=== PATIENT | female | born 1950 | race Caucasian/White ===

== ENCOUNTER 2017-06-25 12:59 | Outpatient (CLI) | payer MEDICARE ==
--- NOTE | 2017-06-25 14:28 | CT ---
LOW DOSE CT SCAN OF THE LUNGS: Date: 06/25/17 HISTORY: 66-year-old female with nicotine dependence, 40+ years of smoking. Wheezing for 2 years off and on. FINDINGS: There is a 9.0 mm calcified nodule at the posteromedial aspect of the right lung base, likely due to old granulomatous disease. No other parenchymal nodules or masses are seen. No pleural or pericardi al effusions are identified. There are vascular calcifications without evidence of aneurysmal dilata tion of the thoracic aorta. There are degenerative changes in the spine. IMPRESSION: Lung-RADS Category 2. Continue annual screening with LDCT in 12 months. POS: [facility]
== END 2017-06-25 13:00 | disposition home or self-care (01) ==
LOC: CT 12:59
PROVIDERS: ATTEND Family Medicine
DX: F17.210 Nicotine dependence, cigarettes, uncomplicated (principal)
CPT/HCPCS: G0297

== ENCOUNTER 2017-08-05 09:57 | Outpatient (CLI) | payer MEDICARE ==
[2017-08-05 11:51] LABS: Red Blood Cell (RBC) Count 4.34 mill/uL (4.20-5.40); White Blood Cell (WBC) Count 6.5 thou/uL (4.8-10.8)
[2017-08-05 11:57] LABS: PTT 30.7 SEC (22.9-36.1); Prothrombin Time 12.8 SEC (12.0-14.7)
[2017-08-05 12:17] LABS: Anion Gap 12 mmol/L (10-20); BUN (Urea Nitrogen) 14 mg/dL (9.8-20.1); Calc. Creatinine Clearance 0 mL/min (70-130); Calcium 9.5 mg/dL (7.8-10.44); Carbon Dioxide 31 mmol/L (23-31); Chloride 103 mmol/L (98-107); Estimated GFR-MDRD 88
--- NOTE | 2017-08-05 18:18 | EKG ---
Test Reason : Blood Pressure : / mmHG Vent. Rate : 080 BPM Atrial Rate : 080 BPM P-R Int : 138 ms QRS Dur : 074 ms QT Int : 386 ms P-R-T Axes : 079 076 075 degrees QTc Int : 445 ms Normal sinus rhythm Right atrial enlargement , p wave Lead II. Borderline ECG No previous ECGs available Confirmed by CHAPO YATES ([id number]) on 08/05/2017 6:18:20 PM Referred By: OBDULIO Confirmed By:CHAPO YATES
== END 2017-08-05 09:58 | disposition home or self-care (01) ==
LOC: LABBT 09:57
PROVIDERS: ATTEND Surgery
DX: Z01.818 Encounter for other preprocedural examination (principal); M54.12 Radiculopathy, cervical region; M47.12 Other spondylosis with myelopathy, cervical region
CPT/HCPCS: 80048; 85027; 85610; 85730; 93005; 93010

== ENCOUNTER 2017-08-05 10:00 | Inpatient (IN) | payer MEDICARE ==
[2017-08-05 10:24] VITALS: BMI 19.3
[2017-08-13] MEDS ORDERED: CEFAZOLIN/Water 2 GM/20 ML SYRINGE ONE (06:09)
[2017-08-13] MEDS ORDERED: Sodium Chloride 0.9% 10 ML ONE (06:24)
[2017-08-13] MEDS ORDERED: Thrombin 5000 UNITS/5 ML VIAL ONE (06:25)
[2017-08-13] MEDS ORDERED: Midazolam HCl 2 mg/2 ml Vial ONE (07:10)
[2017-08-13] MEDS ORDERED: Fentanyl 100 MCG/2 ML VIAL ONE ×5 (07:10→12:53)
[2017-08-13] MEDS ORDERED: Ondansetron HCl/PF 4 MG/2 ML Vial IVP PRN ×2 (09:43→11:28)
[2017-08-13] MEDS ORDERED: Promethazine HCl 25 MG/ML VIAL SLOW IVP PRN (09:43)
[2017-08-13] MEDS ORDERED: Morphine Sulfate 2 MG/ML SYRINGE SLOW IVP PRN (09:43)
[2017-08-13] MEDS ORDERED: Meperidine HCl/PF 25 MG/ML VIAL SLOW IVP PRN (09:43)
[2017-08-13] MEDS ORDERED: Promethazine HCl 25 MG/ML VIAL IM PRN ×2 (09:43→11:28)
[2017-08-13] MEDS ORDERED: HYDROmorphone 2 MG/ML VIAL SLOW IVP PRN (09:43)
[2017-08-13] MEDS ORDERED: Mag-Al 1200 mg/1200 mg/30 ML UDCUP PO PRN (11:28)
[2017-08-13] MEDS ORDERED: Bisacodyl 10 MG SUPP PR PRN (11:28)
[2017-08-13] MEDS ORDERED: traMADol HCl 50 MG TAB PO PRN (11:28)
[2017-08-13] MEDS ORDERED: Acetaminophen 325 MG TAB PO PRN (11:28)
[2017-08-13] MEDS ORDERED: Fleet Enema 133 ML BOT PR PRN (11:28)
[2017-08-13] MEDS ORDERED: HYDROcodone/Acetaminophen 7.5/325 mg Tablet PO PRN ×2 (11:28→19:02)
[2017-08-13] MEDS ORDERED: Acetaminophen/Codeine 30-300mg Tablet PO PRN (11:28)
[2017-08-13] MEDS ORDERED: Milk Of Magnesia 30 ML UDCUP PO PRN (11:28)
[2017-08-13] MEDS ORDERED: PROVENTIL INHALER 6.7 G (200 INHALATIONS) INH PRN (11:31)
[2017-08-13] MEDS ORDERED: Alendronate Sodium 70 mg Tablet PO SCH (11:45)
--- NOTE | 2017-08-13 12:38 | OP ---
DATE OF PROCEDURE: 08/13/2017 PREPROCEDURE DIAGNOSES: Multilevel cervical stenosis with myelopathy. POSTPROCEDURE DIAGNOSES: Multilevel cervical stenosis with myelopathy. SURGEON: Nate David M.D. SAFEKEEPING CLERK: Eleuterio Cortez PA-C WOUND TYPE: Type 1 wound. OR: OR #12 PROCEDURE: 1. Anterior C4-C5, C5-C6, C6-C7 discectomies for decompression of spinal cord and nerve roots. 2. Placement of interbody spacers C4-C5, C5-C6, C6-C7 packed with local bone autograft obtained from same incision and allograft, C4-C5, C5-C6, C6-C7 for arthrodesis. 3. Anterior cervical plate and screw fixation, C4, C5, C6, C7. 4. Use of operative microscope for microdissection. 5. Fusion C4, C5, C6, C7. PROCEDURE: After informed consent was obtained from the patient, the patient brought to the OR. Pro per patient pause and identification was carried out. He was placed under excellent general endotrac heal anesthesia and positioned supine on the operating room table. All appropriate points were padde d. We identified a right oblique dario that would allow for approach anteriorly at C4, C5, C6, and C7 segments. This area was sterilely cleansed, prepared, and draped. Proper patient pause and identif ication was carried out. The wound was then opened with a combination of sharp, monopolar and blunt dissection, and proceeded lateral to the larynx and pharynx and medial to the right carotid sheath. We identified the prevertebral layer of deep cervical fascia and the retractors were placed after angelique ropriate dissection of the longus colli muscles at C4, C5, C6, C7. The microscope was then moved int o the operative field and distraction at C4-C5 then occurred. We then performed diskectomy at C4-C5 with satisfactory decompression of the spinal cord and nerve roots. We then turned our attention to preparation of the endplates and for arthrodesis and an interbody spacer packed with local bone autog raft and allograft was placed at C4-C5 for structural support and arthrodesis. We then turned our at tention to the C5-C6 segment and a diskectomy was performed there with decompression of the spinal co rd and nerve roots. The endplates were prepared. An interbody spacer of appropriate dimension was p acked with local bone autograft and allograft and placed at C5-C6. We then released distraction ther e and did the same thing at C6-C7 with decompression at C6-C7 via diskectomy and preparation of the e ndplates. We placed an interbody spacer packed with local bone autograft and allograft at C6-C7. We were satisfied at that point with our decompression and arthrodesis at C6-C7, C5-C6 and C4-C5. Inte rbody spacer had been placed at that segment as well and packed with local bone autograft and allogra ft. We then removed the microscope and anterior cervical plate and screw fixation C4, C5, C6, C7 the n occurred. We were satisfied with both gross and fluoroscopic visualization and then final tighteni ng occurred. The wound was copiously irrigated and closed in anatomic layers over a drain. The gibson ent then emerged from anesthesia.
[2017-08-13] MEDS ORDERED: CEFAZOLIN/Water 2 GM/20 ML SYRINGE SLOW IVP SCH (14:00)
[2017-08-13] MEDS ORDERED: Lidocaine 1% PF 5 ML VIAL ONE (14:47)
[2017-08-13] MEDS ORDERED: Dexamethasone 20 MG/5 ML VIAL ONE (14:47)
[2017-08-13] MEDS ORDERED: Ondansetron HCl/PF 4 MG/2 ML Vial ONE (14:47)
[2017-08-13] MEDS ORDERED: Propofol 200 MG/20 ML VIAL ONE (14:47)
[2017-08-13] MEDS ORDERED: PHENYLEPHRINE-NS 100 MCG/ML 10 ML SYRINGE ONE (14:47)
[2017-08-13] MEDS ORDERED: Metoclopramide HCl 10 MG/2 ML VIAL ONE (14:47)
[2017-08-13] MEDS ORDERED: Vecuronium 10 MG VIAL ONE (14:47)
[2017-08-13] MEDS ORDERED: Glycopyrrolate 0.2 MG/ML 5 ML SYRINGE ONE (14:47)
[2017-08-13] MEDS: Sodium Chloride 0.9% 1,000 ML IV SCH (16:13)
[2017-08-13] MEDS: CEFAZOLIN/Water 2 GM/20 ML SYRINGE SLOW IVP SCH (16:13)
[2017-08-13] MEDS: tiZANidine HCl 4 MG TAB PO PRN (17:19)
[2017-08-13] MEDS: HYDROcodone/Acetaminophen 7.5/325 mg Tablet PO PRN (20:43)
[2017-08-14] MEDS: CEFAZOLIN/Water 2 GM/20 ML SYRINGE SLOW IVP SCH ×2 (00:16→08:43)
[2017-08-14] MEDS: Sodium Chloride 0.9% 1,000 ML IV SCH ×2 (01:02→06:45)
[2017-08-14] MEDS: HYDROcodone/Acetaminophen 7.5/325 mg Tablet PO PRN ×2 (04:36→08:51)
[2017-08-14] MEDS ORDERED: Cyanocobalamin (Vitamin B-12) 1,000 MCG TAB PO SCH (09:00)
[2017-08-14] MEDS ORDERED: Ergocalciferol 1.25 MG(50,000 UNITS) CAP PO SCH (09:00)
--- NOTE | 2017-08-14 09:12 | PRG ---
DATE OF SERVICE: 08/14/2017 Ms. Marie is postoperative day 1 from C4-C7 ACDF. She is doing well. She has mobilized. Her cassia in output is 50 mL. Her strength is stable from preoperatively. We went over both intra and postope rative issues. She may be dismissed today.
[2017-08-14 09:22] VITALS: BP 103/65; TEMP 98.3
[2017-08-14] MEDS: tiZANidine HCl 4 MG TAB PO PRN (10:37)
== END 2017-08-14 10:49 | disposition home or self-care (01) | DRG 473 ==
LOC: SURG A 08-13 05:42
PROVIDERS: ADMIT Surgery; ATTEND Surgery
PROC: 0RB30ZZ Excision of Cervical Vertebral Disc, Open Approach (ICD-10-PCS; principal; 2017-08-13)
PROC: 0RG20A0 Fusion of 2 or more Cervical Vertebral Joints with Interbody Fusion Device, Anterior Approach, Anterior Column, Open Approach (ICD-10-PCS; 2017-08-13)
DX: M47.12 Other spondylosis with myelopathy, cervical region (principal); F17.210 Nicotine dependence, cigarettes, uncomplicated; Z85.41 Personal history of malignant neoplasm of cervix uteri; M48.02 Spinal stenosis, cervical region; M85.80 Other specified disorders of bone density and structure, unspecified site
CPT/HCPCS: 76001; 96374; A4216; C1713; J1100; J1170; J2001; J2250; J2405; J2704; J2765; J3010; J3490

== ENCOUNTER 2017-09-18 08:00 | Outpatient (CLI) | payer MEDICARE ==
[2017-09-18] MEDS ORDERED: Iopamidol 370 76% 100 ML VIAL ONE (16:03)
== END 2017-09-18 08:01 | disposition home or self-care (01) ==
LOC: BICCT 08:00
PROVIDERS: ATTEND Internal Medicine
DX: R63.4 Abnormal weight loss (principal); R19.7 Diarrhea, unspecified
CPT/HCPCS: 36415; 74177; 82565

== ENCOUNTER 2017-10-01 12:30 | Outpatient (CLI) | payer MEDICARE ==
--- NOTE | 2017-10-01 14:49 | ULT ---
TRANSABDOMINAL AND TRANSVAGINAL PELVIC ULTRASOUND: HISTORY: Abnormal CT scan of 09/08/17 from [facility] with large uterus and thickened endometriu m on CT. FINDINGS: The uterus measures 6.1 x 3.8 x 2.6 cm without focal mass or endometrial fluid. The endometrium elizabet ures 4 mm in thickness. Echogenic calcific densities seen in the uterus and endometrium. The ovarie s are not visualized. A large amount of bowel gas is present. No adnexal mass or free fluid in the cul-de-sac is identified. IMPRESSION: No significant abnormalities are seen. POS: [facility]
== END 2017-10-01 12:31 | disposition home or self-care (01) ==
LOC: ULT 12:30
PROVIDERS: ATTEND Internal Medicine
DX: K52.9 Noninfective gastroenteritis and colitis, unspecified (principal); R93.8 Abnormal findings on diagnostic imaging of other specified body structures; R10.13 Epigastric pain; R07.9 Chest pain, unspecified
CPT/HCPCS: 76856

== ENCOUNTER 2017-10-02 10:28 | Outpatient (CLI) | payer MEDICARE ==
--- NOTE | 2017-10-02 12:10 | RAD ---
THREE VIEWS CERVICAL SPINE: HISTORY: Followup after surgery. Cervicalgia. COMPARISON: 05/31/2017 FINDINGS: Three views of the cervical spine show the patient to be status post anterior fusion of C4 through C7 with an anterior plate and screws. Disk spacers are seen in good position within the disk spaces. No prevertebral soft tissue swelling is seen. No perihardware lucency is seen. IMPRESSION: Postsurgical changes of the cervical spine without evidence of complication. POS: [facility]
== END 2017-10-02 10:29 | disposition home or self-care (01) ==
LOC: TBSIIMAG 10:28
PROVIDERS: ATTEND Surgery
DX: M54.2 Cervicalgia (principal); Z98.890 Other specified postprocedural states
CPT/HCPCS: 72040

== ENCOUNTER 2018-11-25 13:38 | Outpatient (CLI) | payer MEDICARE ==
--- NOTE | 2018-11-25 15:49 | MRI ---
MRI LEFT SHOULDER: 11/25/2018 PROVIDED CLINICAL HISTORY: Left shoulder pain. CORRELATION: CT chest dated 06/25/2017. FINDINGS: There is amorphous diminished T1 and T2 signal intensity within the substance of the distal conjoined tendon, compatible with calcific peritendinitis. The components of the rotator cuff demonstrate no definite evidence for tear. There is conspicuous subacromial, subdeltoid bursal fluid. The amount o f fluid within the glenohumeral joint appears physiologic. The longhead biceps tendon appears intact and normally located. The glenoid labrum and glenohumeral articular cartilage are suboptimally evaluated in the absence of joint distention, but appear grossly normal. There is a circumscribed area of heterogeneous signal alteration present within the base of the acrom ion process of the scapula, extending into the base of the glenoid process of the scapula. When cyndi elating with the CT examination of 06/25/2017, this demonstrates MR and CT features most compatible w ith a benign fibro-osseous lesion, such as fibrous dysplasia. Regional marrow and muscular signal ap pear otherwise normal. Rotator cuff muscular volume appears preserved. Acromioclavicular joint osteoarthrosis is demonstrated, without significant mass effect upon the subj acent supraspinatus. IMPRESSION: 1. Findings compatible with calcific peritonitis involving the distal conjoined tendon. 2. Conspicuous subacromial and subdeltoid bursal fluid, likely reflecting bursitis. 3. 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 POS: [facility]
--- NOTE | 2018-11-25 16:20 | MRI ---
RIGHT SHOULDER MRI WITHOUT IV CONTRAST: 11/25/18 HISTORY: Right shoulder pain with limited range of motion. Multiplanar and multisequence MRI examination of the right shoulder is performed. AC joint arthrosis changes are noted with subchondral cystic change as well as fluid and fat stranding in the subacromia l subdeltoid bursa. There is minimal thinning of the anterior supraspinatus tendon without evidence f or a complete full thickness retracted tear. There is a partial thickness undersurface and delaminati ng tear of the subscapularis tendon with some associated tendinopathy. The biceps tendon appears inta ct. The labrum appears somewhat blunted possibly related to some degenerative fraying. Rotator cuff m uscles are within normal limits of signal and volume. There is noted to be an approximately 2.4 x 3.1 x 3.7 cm diameter circumscribed T1 hypointense, T2 hyperintense focus inferior to the clavicle and a nterior to the supraspinatus and subscapularis muscle belly regions. I am not certain as to the etiol ogy, conceivably this could represent a large ganglion cyst although is in a somewhat unusual locatio n and size. I would recommend consideration for a followup post IV contrast study to exclude the poss ibility of this representing an enhancing soft tissue mass. IMPRESSION: 2.4 x 3.1 x 3.7 cm diameter circumscribed T2 hyperintense, T1 hypointense nodular focus inferior to t he clavicle and anterior to the supraspinatus and subscapularis muscles. Followup post IV contrast st udy is recommended to exclude the possibility of this being an enhancing soft tissue mass, although t his may well represent a large ganglion cyst, it is certainly in an atypical location and size. Parti al thickness undersurface and delaminating subscapularis tendon tear with tendinopathy. Minimal tendi nopathy of the supra and infraspinatus tendons but no complete full thickness retracted tendon tear. AC joint arthrosis with a moderate amount of fluid within the subacromial, subdeltoid bursa. Potentia lly this could represent some associated bursitis. Rotator cuff muscles are within normal limits of s ize, shape and position. AC joint arthrosis. POS: [facility]
== END 2018-11-25 13:39 | disposition home or self-care (01) ==
LOC: BICMRI 13:38
PROVIDERS: ATTEND Orthopaedic Surgery
DX: M25.511 Pain in right shoulder (principal); M25.512 Pain in left shoulder; S46.911A Strain of unspecified muscle, fascia and tendon at shoulder and upper arm level, right arm, initial encounter; M19.011 Primary osteoarthritis, right shoulder

== ENCOUNTER 2018-12-01 13:16 | Outpatient (CLI) | payer MEDICARE ==
[~2018-12-01 13:16] MED LIST: Gadobenate Dimeglumine 529 MG/1 ML (20ML VIAL) ONE
--- NOTE | 2018-12-01 16:04 | MRI ---
[facility] Upper Ext Jt Rt W WO Con History: [Axillary mass] Comparison: MRI November 25, 2018 Findings: There is revisualization of the right axillary mass which is T2 hyperintense and T1 hypoint ense with well-defined lobular border. This mass measures 3.1 x 2.2 x 3.2 cm. There is a rind of cathy pheral enhancement. This abuts the axillary nerve. No other mass is appreciated. There is no connecti on to the glenohumeral joint or the acromioclavicular joint. This does abut the lateral margin of the right-sided ribs. Impression: Right axillary mass has benign features and respects the adjacent soft tissue planes. Dif ferential includes a necrotic/granulomatous lymph node much less likely a cystic nerve sheath tumor n or adventitial bursa. Ultrasound-guided aspiration may be beneficial if clinically warranted. This lou s not significantly grown from the CT of the chest from June 2017.
--- NOTE | 2018-12-01 16:08 | MRI ---
[facility] Upper Ext Jt Lt W WO Con History: [Calcific tendinitis the left shoulder. In the setting of 5.32. Abnormal finding of the base of the coracoid.] Comparison: MRI November 25, 2018 Findings: There is a peripherally enhancing intramedullary mass within the scapular spine with periph eral T2 hyperintensity as well as endosteal scalloping. No definite cortical breakthrough. No pericor tical edema. This does extend into the scapular body and measures 3 cm in AP by 1.4 cm in transverse by craniocaudad dimension of 2.8 cm. Remainder of the findings are unchanged. Calcific tendinosis of the rotator cuff. Moderate subacromial/subdeltoid bursa effusion. Impression: Mass of the scapula at the base of the scapular spine without cortical breakthrough nor p erilesional edema. There is mild endosteal scalloping which is smooth. The intramedullary mass has im aging characteristics of either a chondroid lesion versus fibrous dysplasia. Given the history of melinda n, low-grade chondrosarcoma cannot be totally excluded.
== END 2018-12-01 13:17 | disposition home or self-care (01) ==
LOC: MRI 13:16
PROVIDERS: ATTEND Orthopaedic Surgery
DX: M75.32 Calcific tendinitis of left shoulder (principal); M19.011 Primary osteoarthritis, right shoulder; R22.31 Localized swelling, mass and lump, right upper limb; R22.32 Localized swelling, mass and lump, left upper limb
CPT/HCPCS: 82565; A9577

== ENCOUNTER 2019-10-13 14:05 | Outpatient (CLI) | payer MEDICARE, BC ==
--- NOTE | 2019-10-13 15:01 | MMO ---
Bilateral MAMMO Bilat Screen [facility]. CLINICAL HISTORY: Patient is 69 years old and is seen for screening. The patient has no family history of breast cancer. The patient has a history of cervical cancer at age 24. VIEWS: The views performed were: bilateral craniocaudal with tomosynthesis; bilateral mediolateral oblique; and bilateral mediolateral oblique with tomosynthesis. FILMS COMPARED: The present examination has been compared to a prior imaging study performed at [facility] on 07/08/2017. This study has been interpreted with the assistance of computer-aided detection. MAMMOGRAM FINDINGS: There are scattered fibroglandular densities. There are stable benign appearing calcifications seen in both breasts. There are no suspicious masses, suspicious calcifications, or new areas of architectural distortion. IMPRESSION: THERE IS NO MAMMOGRAPHIC EVIDENCE OF MALIGNANCY. A ROUTINE FOLLOW-UP MAMMOGRAM IN 1 YEAR IS RECOMMENDED. THE RESULTS OF THIS EXAM WERE SENT TO THE PATIENT. ACR BI-RADS Category 2 - Benign finding MAMMOGRAPHY NOTE: 1. A negative mammogram report should not delay a biopsy if a dominant of clinically suspicious mass is present. 2. Approximately 10% to 15% of breast cancers are not detected by mammography. 3. Adenosis and dense breasts may obscure an underlying neoplasm. Reported by: CITLALLI KELLER MD Electonically Signed: [id number]
== END 2019-10-13 14:06 | disposition home or self-care (01) ==
LOC: BICMAMMO 14:05
PROVIDERS: ATTEND Family Medicine
DX: Z12.31 Encounter for screening mammogram for malignant neoplasm of breast (principal); Z85.41 Personal history of malignant neoplasm of cervix uteri
CPT/HCPCS: 77063; 77067

== ENCOUNTER 2019-10-20 13:55 | Outpatient (CLI) | payer MEDICARE, BC ==
--- NOTE | 2019-10-20 15:50 | CT ---
CT PULMONARY LUNG SCAN PERFORMED WITHOUT CONTRAST ENHANCEMENT: HISTORY: A 45-year smoking history, nicotine dependence. COMPARISON: A 06/25/2017 exam. FINDINGS: Changes of centrilobular emphysema are present. An 8-9 mm pleural-based nodule seen in the right lower lobe in the posterior sulcus along the medial aspect of the lung which shows some calcification. It is a stable finding as compared to the prior e xam. There are no new nodules identified. There is no significant mediastinal lymphadenopathy. Cor onary calcifications are seen. Visualized liver parenchyma shows no focal findings. IMPRESSION: 1. Lung RADS category 1 - negative. Annual followup is recommended. 2. Lung RADS category S. This is given for the presence of some coronary artery calcifications. POS: [facility]
== END 2019-10-20 13:56 | disposition home or self-care (01) ==
LOC: CT 13:55
PROVIDERS: ATTEND Family Medicine
DX: Z12.2 Encounter for screening for malignant neoplasm of respiratory organs (principal); F17.210 Nicotine dependence, cigarettes, uncomplicated; I25.10 Atherosclerotic heart disease of native coronary artery without angina pectoris
CPT/HCPCS: G0297

== ENCOUNTER 2021-02-09 10:55 | Outpatient (CLI) | payer MEDICARE | END 2021-02-09 10:56 | disposition home or self-care (01) | LOC: BICCT 10:55 | PROVIDERS: ATTEND Family Medicine | DX: Z12.2 Encounter for screening for malignant neoplasm of respiratory organs (principal); F17.210 Nicotine dependence, cigarettes, uncomplicated; R22.2 Localized swelling, mass and lump, trunk | CPT/HCPCS: 71271 ==

== ENCOUNTER 2021-03-09 14:43 | Outpatient (CLI) | payer MEDICARE, BC | END 2021-03-09 14:44 | disposition home or self-care (01) | LOC: BICMAMMO 14:43 | PROVIDERS: ATTEND Family Medicine | DX: Z12.31 Encounter for screening mammogram for malignant neoplasm of breast (principal); Z85.41 Personal history of malignant neoplasm of cervix uteri | CPT/HCPCS: 77063; 77067 ==

== ENCOUNTER 2022-02-09 10:52 | Outpatient (CLI) | payer MEDICARE, BC | END 2022-02-09 10:53 | disposition home or self-care (01) | LOC: BICCT 10:52 | PROVIDERS: ATTEND Family Medicine | DX: Z12.2 Encounter for screening for malignant neoplasm of respiratory organs (principal); F17.210 Nicotine dependence, cigarettes, uncomplicated | CPT/HCPCS: 71271 ==

== ENCOUNTER 2022-03-19 12:22 | Outpatient (CLI) | payer MEDICARE, BC | END 2022-03-19 12:23 | disposition home or self-care (01) | LOC: BICMAMMO 12:22 | PROVIDERS: ATTEND Family Medicine | DX: Z12.31 Encounter for screening mammogram for malignant neoplasm of breast (principal); Z85.41 Personal history of malignant neoplasm of cervix uteri | CPT/HCPCS: 77063; 77067 ==

== ENCOUNTER 2023-06-27 08:03 | Outpatient (CLI) | payer MEDICARE | END 2023-06-27 08:04 | disposition home or self-care (01) | LOC: CT 08:03 | PROVIDERS: ATTEND Family Medicine | DX: R55 Syncope and collapse (principal) | CPT/HCPCS: 70470 ==

== ENCOUNTER 2023-07-15 15:39 | Outpatient (CLI) | payer MEDICARE | END 2023-07-15 15:40 | disposition home or self-care (01) | LOC: ULT 15:39 | PROVIDERS: ATTEND Family Medicine | DX: R55 Syncope and collapse (principal) | CPT/HCPCS: 93880 ==

== ENCOUNTER 2024-09-04 09:54 | Outpatient (CLI) | payer MEDICARE ==
[~2024-09-04 09:54] MED LIST changes: -Gadobenate Dimeglumine 529 MG/1 ML (20ML VIAL) ONE; +Iopamidol 370 76% 100 ML VIAL ONE
== END 2024-09-04 09:55 | disposition home or self-care (01) ==
LOC: BICCT 09:54
PROVIDERS: ATTEND Family Medicine
DX: R31.0 Gross hematuria (principal); N20.0 Calculus of kidney
CPT/HCPCS: 36415; 74178; 82565; Q9967